=== PATIENT | male | born 1945 | race Caucasian/White ===

== ENCOUNTER 2023-12-04 19:36 | Emergency (ER) | payer OTHER ==
[~2023-12-04] VITALS: Ht 154.9 cm; Wt 72.2 kg
[2023-12-04 19:52] VITALS: BP 173/90; PULSE 75; RESP 16; TEMP 97.7; O2SAT 98
[2023-12-04 20:10] VITALS: O2SAT 98
[2023-12-04] MEDS: PHENAZOPYRIDINE 100 MG TAB PO ONE (20:41)
[2023-12-04 20:59] LABS: BASOPHILS % (AUTO) 0.2 % (0.0-2.0); EOSINOPHILS # (AUTO) 0.2 K/uL (0-0.4); EOSINOPHILS % (AUTO) 3.4 % (0.0-4.0); HEMOGLOBIN 14.5 g/dL (12.0-18.0); LYMPHOCYTES # (AUTO) 1.1 K/uL (2.0-11.5); LYMPHOCYTES % (AUTO) 20.6 % (20.5-51.1); MEAN CORPUSCULAR HEMOGLOBIN 32 pg (27-31); MEAN CORPUSCULAR HGB CONC 34 g/dL (33-37); MEAN CORPUSCULAR VOLUME 95.5 fL (80-94); MONOCYTES # (AUTO) 0.5 K/uL (0.8-1.0); MONOCYTES % (AUTO) 10.4 % (1.7-9.3); NEUTROPHILS # (AUTO) 3.4 K/uL (1.8-7.7); NEUTROPHILS % (AUTO) 65.4 % (42.2-75.2); PLATELET COUNT (AUTO) 162 K/uL (140-450); RED CELL DISTRIBUTION WIDTH 13.1 % (11.6-13.7); WHITE BLOOD COUNT (AUTO) 5.3 K/uL (4.8-10.8)
[2023-12-04 21:06] LABS: CALCIUM 8.5 mg/dL (8.5-10.1); CARBON DIOXIDE 19.8 mmol/L (21-32); CHLORIDE 94 mmol/L (98-107); CREATININE 0.8 mg/dL (0.6-1.3); GLUCOSE 136 mg/dL (74-106); POTASSIUM 3.8 mmol/L (3.5-5.1); SODIUM SERUM 128 mmol/L (136-145); UREA NITROGEN, BLOOD 7 mg/dL (7-18)
[2023-12-04 21:09] LABS: APPEARANCE,URINE CLEAR (CLEAR); BILIRUBIN,URINE NEGATIVE (NEGATIVE); BLOOD, URINE NEGATIVE (NEGATIVE); COLOR,URINE YELLOW (YELLOW); LEUKOCYTE ESTERASE ,URINE NEGATIVE (NEGATIVE); NITRITE, URINE NEGATIVE (NEGATIVE); PROTEIN,URINE NEGATIVE (NEGATIVE); UGLUCOSE NEGATIVE (NEGATIVE); UROBILINOGEN,URINE 0.2 EU/dL (0.2 - 1)
[2023-12-04 21:15] LABS: ALANINE AMINOTRANSFERASE 23 U/L (12-78); ALBUMIN 3.8 g/dL (3.4-5.0); ALKALINE PHOSPHATASE 79 U/L (50-136); ASPARTATE AMINOTRANSFERASE 19 U/L (15-37); BILIRUBIN,DIRECT 0.2 mg/dL (0.0-0.3); TOTAL BILIRUBIN 0.5 mg/dL (0.0-1.0); TOTAL PROTEIN, SERUM 7.2 g/dL (6.4-8.2)
[2023-12-04] MEDS ORDERED: KETOROLAC 30 MG/ML VIAL ONE ×2 (22:15)
[2023-12-04 22:54] VITALS: O2SAT 98
[2023-12-05] MEDS ORDERED: MORPHINE SULFATE 4 MG/ML SYR ONE (00:44)
[2023-12-05] MEDS: MORPHINE SULFATE 4 MG/ML SYR IM ONE (01:09)
[2023-12-05] MEDS ORDERED: PYR100 PO (01:46)
[2023-12-05] MEDS ORDERED: ACET-8905 PO (01:46)
[2023-12-05] MEDS ORDERED: ROB PO (01:46)
[2023-12-05] MEDS ORDERED: NITR100C7 PO (01:46)
[2023-12-05] MEDS: HYDROcodone/APAP 5/325 MG 1 TAB TAB PO ONE (01:57)
[2023-12-05 02:05] VITALS: BP 168/81; PULSE 69; RESP 16; TEMP 98.1; O2SAT 95
== END 2023-12-05 02:01 | disposition home or self-care (01) ==
LOC: MED 19:36
DX: N30.90 Cystitis, unspecified without hematuria (principal); Z79.899 Other long term (current) drug therapy
CPT/HCPCS: 36415; 71045; 74176; 80048; 80076; 81003; 84484; 85025; 93005; 96372; 99285; J2270; J1885